=== PATIENT | male | born 1960 | race Caucasian/White ===

== ENCOUNTER 2018-05-14 17:44 | Inpatient (IN) | payer MEDICARE ==
[~2018-05-14] VITALS: Ht 180.3 cm; Wt 71.2 kg
[2018-05-14] MEDS ORDERED: ACETAMINOPHEN 325 MG TABLET PO PRN (18:00)
[2018-05-14 18:29] LABS: BASOPHILS # (AUTO) 0.02 x10^3/uL (0-0.1); BASOPHILS % (AUTO) 0 % (0-1); EOSINOPHILS # (AUTO) 0.11 x10^3/uL (0-0.4); EOSINOPHILS % (AUTO) 1 % (1-7); LYMPHOCYTES # (AUTO) 1.05 x10^3/uL (1-3.4); LYMPHOCYTES % (AUTO) 7 % (22-44); MD NO; MEAN CORPUSCULAR HEMOGLOBIN 24.1 pg (27.5-34.5); MEAN CORPUSCULAR HGB CONC 31.9 g/dL (33.2-36.2); MEAN CORPUSCULAR VOLUME 75.7 fL (81-97); MEAN PLATELET VOLUME 7.5 fL (7.4-10.4); MONOCYTES # (AUTO) 0.72 x10^3/uL (0.2-0.8); MONOCYTES % (AUTO) 5 % (2-9); NEUTROPHILS # (AUTO) 12.79 x10^3/uL (1.8-6.8); NEUTROPHILS % (AUTO) 87 % (42-75); PLATELET COUNT 381 x10^3/uL (130-400); RED BLOOD COUNT 4.11 x10^6/uL (4.38-5.82); RED CELL DISTRIBUTION WIDTH 17.8 % (9.4-14.8)
[2018-05-14] MEDS ORDERED: PLEASE ENTER HEIGHT AND WEIGHT MC SCH (18:30)
[2018-05-14] MEDS ORDERED: PLEASE ENTER ALLERGIES MC SCH (18:30)
[2018-05-14 18:39] LABS: INTERNATIONAL NORMALIZED RATIO 1.11 (0.93-1.1); PROTHROMBIN TIME 11.6 Seconds (9.6-11.5)
[2018-05-14 18:40] LABS: ANION GAP 6 mmol/L (5-15); CALCIUM 7.7 mg/dL (8.5-10.1); CHLORIDE 106 mmol/L (98-107); CREATININE 0.96 mg/dL (0.7-1.3)
[2018-05-14 20:04] VITALS: BP 121/68
[2018-05-14 20:13] VITALS: BP 104/64
[2018-05-14] MEDS: OXYcodone/APAP 5/325MG TABLET PO PRN (20:18)
[2018-05-14] MEDS: PIPERACILLIN/TAZO/PMX 3.375GM 50 ML IV SCH (20:30)
[2018-05-15 01:10] VITALS: BP 107/58
[2018-05-15] MEDS: PIPERACILLIN/TAZO/PMX 3.375GM 50 ML IV SCH ×3 (04:30→20:41)
[2018-05-15 05:43] LABS: ANION GAP 8 mmol/L (5-15); CALCIUM 7.7 mg/dL (8.5-10.1); CHLORIDE 107 mmol/L (98-107)
[2018-05-15 05:45] LABS: BASOPHILS # (AUTO) 0.04 x10^3/uL (0-0.1); BASOPHILS % (AUTO) 0 % (0-1); EOSINOPHILS # (AUTO) 0.27 x10^3/uL (0-0.4); EOSINOPHILS % (AUTO) 3 % (1-7); LYMPHOCYTES # (AUTO) 1.01 x10^3/uL (1-3.4); LYMPHOCYTES % (AUTO) 10 % (22-44); MD NO; MEAN CORPUSCULAR HEMOGLOBIN 23.8 pg (27.5-34.5); MEAN CORPUSCULAR HGB CONC 31.4 g/dL (33.2-36.2); MEAN CORPUSCULAR VOLUME 75.8 fL (81-97); MEAN PLATELET VOLUME 7.4 fL (7.4-10.4); MONOCYTES # (AUTO) 0.72 x10^3/uL (0.2-0.8); MONOCYTES % (AUTO) 7 % (2-9); NEUTROPHILS # (AUTO) 8.12 x10^3/uL (1.8-6.8); NEUTROPHILS % (AUTO) 80 % (42-75); PLATELET COUNT 353 x10^3/uL (130-400); RED BLOOD COUNT 3.74 x10^6/uL (4.38-5.82)
[2018-05-15 06:02] LABS: CREATININE 0.78 mg/dL (0.7-1.3)
[2018-05-15 07:41] VITALS: BP 117/67
[2018-05-15] MEDS ORDERED: POTASSIUM CHLORIDE 40 MEQ in SODIUM CHLORIDE 0.9% 500 ML IV ONE (10:00)
[2018-05-15] MEDS: OXYcodone/APAP 5/325MG TABLET PO PRN ×3 (11:10→20:11)
[2018-05-15 13:11] VITALS: BP 102/56
[2018-05-15 20:45] VITALS: BP 132/65
[2018-05-16 00:58] VITALS: BP 112/69
[2018-05-16] MEDS: PIPERACILLIN/TAZO/PMX 3.375GM 50 ML IV SCH ×3 (04:38→21:02)
[2018-05-16 05:02] LABS: BASOPHILS % (AUTO) 0 % (0-1); EOSINOPHILS # (AUTO) 0.21 x10^3/uL (0-0.4); EOSINOPHILS % (AUTO) 2 % (1-7); LYMPHOCYTES # (AUTO) 1.04 x10^3/uL (1-3.4); LYMPHOCYTES % (AUTO) 9 % (22-44); MD NO; MEAN CORPUSCULAR HEMOGLOBIN 24.2 pg (27.5-34.5); MEAN CORPUSCULAR VOLUME 75.7 fL (81-97); MEAN PLATELET VOLUME 7.3 fL (7.4-10.4); MONOCYTES # (AUTO) 0.89 x10^3/uL (0.2-0.8); MONOCYTES % (AUTO) 7 % (2-9); NEUTROPHILS # (AUTO) 9.96 x10^3/uL (1.8-6.8); NEUTROPHILS % (AUTO) 82 % (42-75); PLATELET COUNT 394 x10^3/uL (130-400); RED BLOOD COUNT 3.87 x10^6/uL (4.38-5.82); RED CELL DISTRIBUTION WIDTH 17.8 % (9.4-14.8)
[2018-05-16 05:11] LABS: ANION GAP 6 mmol/L (5-15); CALCIUM 7.9 mg/dL (8.5-10.1); CHLORIDE 106 mmol/L (98-107); CREATININE 0.72 mg/dL (0.7-1.3)
[2018-05-16] MEDS: OXYcodone/APAP 5/325MG TABLET PO PRN ×3 (05:30→19:53)
[2018-05-16 08:00] VITALS: BP 123/64
[2018-05-16 13:51] VITALS: BP 102/55
[2018-05-16] MEDS: ENOXAPARIN 40 MG/0.4 ML SQ SCH (15:46)
[2018-05-16 19:45] VITALS: BP 108/66
[2018-05-17 00:20] VITALS: BP 117/54
[2018-05-17] MEDS: OXYcodone/APAP 5/325MG TABLET PO PRN ×4 (04:56→22:07)
[2018-05-17] MEDS: PIPERACILLIN/TAZO/PMX 3.375GM 50 ML IV SCH ×3 (04:57→21:54)
[2018-05-17 07:26] VITALS: BP 119/53
[2018-05-17] MEDS ORDERED: PHARMACOKINETIC MONITORING MC PRN (10:30)
[2018-05-17] MEDS ORDERED: VANCOMYCIN PMX 1GM/200ML 200 ML IV ONE (10:30)
[2018-05-17] MEDS ORDERED: VANCOMYCIN PER PHARMACY MC PRN (10:30)
[2018-05-17] MEDS: VANCOMYCIN 1,300 MG in SODIUM CHLORIDE 0.9% 250 ML IV SCH ×2 (11:07→23:27)
[2018-05-17 12:47] LABS: MICROSCOPIC INDICATED
[2018-05-17 13:13] VITALS: BP 117/71
[2018-05-17] MEDS: ENOXAPARIN 40 MG/0.4 ML SQ SCH (14:58)
[2018-05-17 20:18] VITALS: BP 120/71
[2018-05-18] MEDS: OXYcodone/APAP 5/325MG TABLET PO PRN ×3 (02:07→22:00)
[2018-05-18 02:13] VITALS: BP 127/71
[2018-05-18] MEDS: PIPERACILLIN/TAZO/PMX 3.375GM 50 ML IV SCH ×4 (05:14→23:04)
[2018-05-18 06:47] LABS: BASOPHILS % (AUTO) 0 % (0-1); EOSINOPHILS # (AUTO) 0.35 x10^3/uL (0-0.4); EOSINOPHILS % (AUTO) 4 % (1-7); LYMPHOCYTES # (AUTO) 0.89 x10^3/uL (1-3.4); LYMPHOCYTES % (AUTO) 11 % (22-44); MD NO; MEAN CORPUSCULAR HEMOGLOBIN 23.8 pg (27.5-34.5); MEAN CORPUSCULAR HGB CONC 31.6 g/dL (33.2-36.2); MEAN CORPUSCULAR VOLUME 75.5 fL (81-97); MONOCYTES # (AUTO) 0.56 x10^3/uL (0.2-0.8); MONOCYTES % (AUTO) 7 % (2-9); NEUTROPHILS # (AUTO) 6.42 x10^3/uL (1.8-6.8); NEUTROPHILS % (AUTO) 78 % (42-75); PLATELET COUNT 469 x10^3/uL (130-400); RED BLOOD COUNT 4.42 x10^6/uL (4.38-5.82); RED CELL DISTRIBUTION WIDTH 18.3 % (9.4-14.8)
[2018-05-18 06:56] LABS: ANION GAP 4 mmol/L (5-15); CALCIUM 8.5 mg/dL (8.5-10.1); CHLORIDE 103 mmol/L (98-107); CREATININE 0.87 mg/dL (0.7-1.3)
[2018-05-18 07:41] VITALS: BP 126/84
[2018-05-18] MEDS: VANCOMYCIN 1,300 MG in SODIUM CHLORIDE 0.9% 250 ML IV SCH ×2 (11:00→12:00)
[2018-05-18] MEDS: LACTOBACILLUS CHEW TABLET PO SCH ×3 (11:48→19:39)
[2018-05-18 12:09] VITALS: BP 117/65
[2018-05-18] MEDS: MORPHINE SULFATE 4 MG/ML, 1ML IVPush PRN ×2 (14:40→19:39)
[2018-05-18] MEDS: ENOXAPARIN 40 MG/0.4 ML SQ SCH (15:11)
[2018-05-18] MEDS ORDERED: GADOBUTROL 7.5 MMOL/7.5 ML PFS ONE (18:55)
[2018-05-18 19:58] VITALS: BP 99/60
[2018-05-19 01:22] VITALS: BP 112/72
[2018-05-19] MEDS: VANCOMYCIN 1,300 MG in SODIUM CHLORIDE 0.9% 250 ML IV SCH (06:14)
[2018-05-19] MEDS: OXYcodone/APAP 5/325MG TABLET PO PRN ×4 (07:00→22:06)
[2018-05-19] MEDS: PIPERACILLIN/TAZO/PMX 3.375GM 50 ML IV SCH (07:47)
[2018-05-19] MEDS: LACTOBACILLUS CHEW TABLET PO SCH ×3 (07:48→19:37)
[2018-05-19 08:20] VITALS: BP 109/67
[2018-05-19] MEDS: MORPHINE SULFATE 4 MG/ML, 1ML IVPush PRN (08:45)
[2018-05-19] MEDS: ENOXAPARIN 40 MG/0.4 ML SQ SCH (15:29)
[2018-05-19] MEDS: CEFTAZIDIME 1,000 MG in SODIUM CHLORIDE 0.9% 50 ML IV SCH ×2 (15:29→23:19)
[2018-05-19 15:55] VITALS: BP 120/73
[2018-05-19 20:23] VITALS: BP 96/58
[2018-05-20] MEDS: VANCOMYCIN 1,300 MG in SODIUM CHLORIDE 0.9% 250 ML IV SCH ×2 (00:08→17:52)
[2018-05-20 02:06] VITALS: BP 105/64
[2018-05-20 07:22] VITALS: BP 110/71
[2018-05-20] MEDS: LACTOBACILLUS CHEW TABLET PO SCH ×3 (07:36→21:05)
[2018-05-20] MEDS: CEFTAZIDIME 1,000 MG in SODIUM CHLORIDE 0.9% 50 ML IV SCH ×3 (07:36→23:30)
[2018-05-20] MEDS: OXYcodone/APAP 5/325MG TABLET PO PRN ×3 (07:36→21:05)
[2018-05-20 14:32] VITALS: BP 96/59
[2018-05-20] MEDS: ENOXAPARIN 40 MG/0.4 ML SQ SCH (15:55)
[2018-05-20 18:49] VITALS: BP 101/64
[2018-05-20] MEDS: MORPHINE SULFATE 4 MG/ML, 1ML IVPush PRN (23:31)
[2018-05-21 01:02] VITALS: BP 105/63
[2018-05-21] MEDS: OXYcodone/APAP 5/325MG TABLET PO PRN ×4 (05:43→21:11)
[2018-05-21] MEDS: CEFTAZIDIME 1,000 MG in SODIUM CHLORIDE 0.9% 50 ML IV SCH ×2 (07:43→16:41)
[2018-05-21 07:56] VITALS: BP 124/74
[2018-05-21] MEDS: LACTOBACILLUS CHEW TABLET PO SCH ×3 (09:00→21:11)
[2018-05-21] MEDS: VANCOMYCIN 1,300 MG in SODIUM CHLORIDE 0.9% 250 ML IV SCH (11:54)
[2018-05-21] MEDS: MORPHINE SULFATE 4 MG/ML, 1ML IVPush PRN (11:54)
[2018-05-21 15:07] VITALS: BP 117/77
[2018-05-21] MEDS: ENOXAPARIN 40 MG/0.4 ML SQ SCH (16:40)
[2018-05-21 19:47] VITALS: BP 115/72
[2018-05-22 00:39] VITALS: BP 138/70
[2018-05-22] MEDS: OXYcodone/APAP 5/325MG TABLET PO PRN ×4 (00:52→20:25)
[2018-05-22] MEDS: CEFTAZIDIME 1,000 MG in SODIUM CHLORIDE 0.9% 50 ML IV SCH ×3 (00:52→15:51)
[2018-05-22] MEDS: GABAPENTIN 300 MG CAPSULE PO SCH ×2 (00:52→20:25)
[2018-05-22] MEDS: MORPHINE SULFATE 4 MG/ML, 1ML IVPush PRN ×2 (00:52→10:55)
[2018-05-22 06:01] LABS: CREATININE 0.93 mg/dL (0.7-1.3); VANCOMYCIN,TROUGH 17.1 mcg/mL (5.0-10.0)
[2018-05-22] MEDS: VANCOMYCIN 1,300 MG in SODIUM CHLORIDE 0.9% 250 ML IV SCH (06:06)
[2018-05-22 07:36] VITALS: BP 111/57
[2018-05-22] MEDS: LACTOBACILLUS CHEW TABLET PO SCH ×3 (08:30→20:25)
[2018-05-22 12:40] LABS: BASOPHILS # (AUTO) 0.04 x10^3/uL (0-0.1); BASOPHILS % (AUTO) 1 % (0-1); EOSINOPHILS # (AUTO) 0.42 x10^3/uL (0-0.4); EOSINOPHILS % (AUTO) 5 % (1-7); LYMPHOCYTES # (AUTO) 1.08 x10^3/uL (1-3.4); LYMPHOCYTES % (AUTO) 13 % (22-44); MD NO; MEAN CORPUSCULAR HEMOGLOBIN 23.2 pg (27.5-34.5); MEAN CORPUSCULAR HGB CONC 30.9 g/dL (33.2-36.2); MEAN CORPUSCULAR VOLUME 75.1 fL (81-97); MEAN PLATELET VOLUME 6.8 fL (7.4-10.4); MONOCYTES # (AUTO) 0.65 x10^3/uL (0.2-0.8); MONOCYTES % (AUTO) 8 % (2-9); NEUTROPHILS # (AUTO) 6.12 x10^3/uL (1.8-6.8); NEUTROPHILS % (AUTO) 74 % (42-75); PLATELET COUNT 560 x10^3/uL (130-400); RED BLOOD COUNT 4.38 x10^6/uL (4.38-5.82); RED CELL DISTRIBUTION WIDTH 18.6 % (9.4-14.8)
[2018-05-22 12:49] LABS: ANION GAP 7 mmol/L (5-15); CALCIUM 8.7 mg/dL (8.5-10.1); CHLORIDE 102 mmol/L (98-107); CREATININE 0.74 mg/dL (0.7-1.3)
[2018-05-22 14:01] VITALS: BP 143/76
[2018-05-22] MEDS: ENOXAPARIN 40 MG/0.4 ML SQ SCH (15:52)
[2018-05-22 20:27] VITALS: BP 97/62
[2018-05-23] MEDS: OXYcodone/APAP 5/325MG TABLET PO PRN ×4 (00:27→22:11)
[2018-05-23] MEDS: CEFTAZIDIME 1,000 MG in SODIUM CHLORIDE 0.9% 50 ML IV SCH ×3 (00:27→16:15)
[2018-05-23] MEDS: VANCOMYCIN 1,300 MG in SODIUM CHLORIDE 0.9% 250 ML IV SCH (01:24)
[2018-05-23 01:27] VITALS: BP 121/71
[2018-05-23 08:00] VITALS: BP 106/65
[2018-05-23] MEDS: LACTOBACILLUS CHEW TABLET PO SCH ×3 (09:19→20:20)
[2018-05-23] MEDS: GABAPENTIN 300 MG CAPSULE PO SCH (09:19)
[2018-05-23] MEDS: DAPTOMYCIN 450 MG in SODIUM CHLORIDE 0.9% 100 ML IVPB SCH (11:36)
[2018-05-23] MEDS: HEPARIN 5,000 UNITS/ML, 1ML SQ SCH ×2 (11:36→20:20)
[2018-05-23] MEDS: MORPHINE SULFATE 4 MG/ML, 1ML IVPush PRN (13:46)
[2018-05-23 13:51] VITALS: BP 121/67
[2018-05-23 19:15] VITALS: BP 114/70
[2018-05-24] MEDS: CEFTAZIDIME 1,000 MG in SODIUM CHLORIDE 0.9% 50 ML IV SCH ×3 (00:20→16:13)
[2018-05-24] MEDS: OXYcodone/APAP 5/325MG TABLET PO PRN ×4 (02:05→20:22)
[2018-05-24 02:08] VITALS: BP 116/76
[2018-05-24] MEDS: HEPARIN 5,000 UNITS/ML, 1ML SQ SCH ×3 (04:41→20:22)
[2018-05-24 07:45] VITALS: BP 121/75
[2018-05-24] MEDS: LACTOBACILLUS CHEW TABLET PO SCH ×3 (08:24→20:22)
[2018-05-24] MEDS: GABAPENTIN 300 MG CAPSULE PO SCH (08:24)
[2018-05-24] MEDS: MORPHINE SULFATE 4 MG/ML, 1ML IVPush PRN (08:54)
[2018-05-24] MEDS: DAPTOMYCIN 450 MG in SODIUM CHLORIDE 0.9% 100 ML IVPB SCH (12:01)
[2018-05-24 12:15] VITALS: BP 117/75
[2018-05-24 18:54] VITALS: BP 121/73
[2018-05-25] MEDS: CEFTAZIDIME 1,000 MG in SODIUM CHLORIDE 0.9% 50 ML IV SCH ×3 (00:31→15:58)
[2018-05-25] MEDS: OXYcodone/APAP 5/325MG TABLET PO PRN ×4 (00:31→19:45)
[2018-05-25 00:32] VITALS: BP 133/68
[2018-05-25] MEDS: HEPARIN 5,000 UNITS/ML, 1ML SQ SCH ×3 (04:00→19:46)
[2018-05-25 05:44] LABS: BASOPHILS # (AUTO) 0.07 x10^3/uL (0-0.1); BASOPHILS % (AUTO) 1 % (0-1); EOSINOPHILS # (AUTO) 0.52 x10^3/uL (0-0.4); EOSINOPHILS % (AUTO) 7 % (1-7); LYMPHOCYTES # (AUTO) 1.17 x10^3/uL (1-3.4); LYMPHOCYTES % (AUTO) 16 % (22-44); MD NO; MEAN CORPUSCULAR HEMOGLOBIN 23.7 pg (27.5-34.5); MEAN CORPUSCULAR HGB CONC 31.6 g/dL (33.2-36.2); MEAN CORPUSCULAR VOLUME 75.2 fL (81-97); MEAN PLATELET VOLUME 7.2 fL (7.4-10.4); MONOCYTES # (AUTO) 0.76 x10^3/uL (0.2-0.8); MONOCYTES % (AUTO) 10 % (2-9); NEUTROPHILS # (AUTO) 4.93 x10^3/uL (1.8-6.8); NEUTROPHILS % (AUTO) 66 % (42-75); PLATELET COUNT 535 x10^3/uL (130-400); RED BLOOD COUNT 4.24 x10^6/uL (4.38-5.82); RED CELL DISTRIBUTION WIDTH 18.9 % (9.4-14.8)
[2018-05-25 05:52] LABS: ALANINE AMINOTRANSFERASE 38 U/L (12-78); ALBUMIN 2.6 g/dL (3.4-5.0); ANION GAP 5 mmol/L (5-15); CALCIUM 8.6 mg/dL (8.5-10.1); CHLORIDE 105 mmol/L (98-107)
[2018-05-25 05:55] LABS: ALKALINE PHOSPHATASE 128 U/L (45-117); BILIRUBIN,TOTAL 0.2 mg/dL (0.2-1.0); CREATININE 0.79 mg/dL (0.7-1.3); TOTAL PROTEIN 7.4 g/dL (6.4-8.2)
[2018-05-25 06:56] VITALS: BP 135/81
[2018-05-25] MEDS: LACTOBACILLUS CHEW TABLET PO SCH ×3 (08:38→19:45)
[2018-05-25] MEDS: GABAPENTIN 300 MG CAPSULE PO SCH (08:38)
[2018-05-25] MEDS: DAPTOMYCIN 450 MG in SODIUM CHLORIDE 0.9% 100 ML IVPB SCH (10:51)
[2018-05-25 13:34] VITALS: BP 122/78
[2018-05-25 19:20] VITALS: BP 113/72
[2018-05-25 23:50] VITALS: BP 134/78
[2018-05-26] MEDS: OXYcodone/APAP 5/325MG TABLET PO PRN ×5 (00:32→22:36)
[2018-05-26] MEDS: CEFTAZIDIME 1,000 MG in SODIUM CHLORIDE 0.9% 50 ML IV SCH ×2 (00:32→08:57)
[2018-05-26] MEDS: HEPARIN 5,000 UNITS/ML, 1ML SQ SCH ×3 (04:36→22:36)
[2018-05-26 06:29] LABS: HCT (SEDRATE) 33.3 % (39.2-51.8)
[2018-05-26 06:46] LABS: C-REACTIVE PROTEIN, QUANT 1.1 mg/dL (0.02-0.49)
[2018-05-26 07:38] VITALS: BP 116/74
[2018-05-26] MEDS: GABAPENTIN 300 MG CAPSULE PO SCH (08:57)
[2018-05-26] MEDS: LACTOBACILLUS CHEW TABLET PO SCH ×3 (08:57→22:36)
[2018-05-26] MEDS: MORPHINE SULFATE 4 MG/ML, 1ML IVPush PRN (09:06)
[2018-05-26] MEDS: DAPTOMYCIN 450 MG in SODIUM CHLORIDE 0.9% 100 ML IVPB SCH (11:34)
[2018-05-26 13:25] VITALS: BP 112/69
[2018-05-26] MEDS: CEFTAZIDIME 2,000 MG in SODIUM CHLORIDE 0.9% 50 ML IV SCH (17:04)
[2018-05-26 20:04] VITALS: BP 106/56
[2018-05-27] MEDS: CEFTAZIDIME 2,000 MG in SODIUM CHLORIDE 0.9% 50 ML IV SCH ×3 (01:33→17:48)
[2018-05-27] MEDS: MORPHINE SULFATE 4 MG/ML, 1ML IVPush PRN ×2 (01:43→22:13)
[2018-05-27 02:53] VITALS: BP 113/67
[2018-05-27] MEDS: HEPARIN 5,000 UNITS/ML, 1ML SQ SCH ×2 (06:05→17:48)
[2018-05-27] MEDS: OXYcodone/APAP 5/325MG TABLET PO PRN ×2 (06:05→14:56)
[2018-05-27] MEDS: LACTOBACILLUS CHEW TABLET PO SCH ×3 (09:20→22:13)
[2018-05-27] MEDS: GABAPENTIN 300 MG CAPSULE PO SCH (09:20)
[2018-05-27 09:31] VITALS: BP 116/76
[2018-05-27] MEDS: DAPTOMYCIN 450 MG in SODIUM CHLORIDE 0.9% 100 ML IVPB SCH (11:55)
[2018-05-27 14:52] VITALS: BP 124/76
[2018-05-27 20:21] VITALS: BP 136/82
[2018-05-28 00:54] VITALS: BP 117/70
[2018-05-28] MEDS: CEFTAZIDIME 2,000 MG in SODIUM CHLORIDE 0.9% 50 ML IV SCH ×2 (02:03→08:47)
[2018-05-28] MEDS: HEPARIN 5,000 UNITS/ML, 1ML SQ SCH ×2 (02:03→10:06)
[2018-05-28] MEDS: OXYcodone/APAP 5/325MG TABLET PO PRN ×3 (02:17→15:56)
[2018-05-28] MEDS: GABAPENTIN 300 MG CAPSULE PO SCH (08:47)
[2018-05-28] MEDS: LACTOBACILLUS CHEW TABLET PO SCH (08:47)
[2018-05-28 09:12] VITALS: BP 109/57
[2018-05-28] MEDS: MORPHINE SULFATE 4 MG/ML, 1ML IVPush PRN ×2 (09:55→15:56)
[2018-05-28] MEDS ORDERED: ACID1TAB7 PO (11:48)
[2018-05-28] MEDS ORDERED: OXYC1TAB7 PO (11:48)
[2018-05-28] MEDS ORDERED: GABA300C10 PO (11:48)
[2018-05-28] MEDS: DAPTOMYCIN 450 MG in SODIUM CHLORIDE 0.9% 100 ML IVPB SCH (12:06)
[2018-05-28 14:51] VITALS: BP 142/76
== END 2018-05-28 16:10 | DRG 871 ==
LOC: 4NOR 17:44
PROVIDERS: ADMIT Internal Medicine; ATTEND Internal Medicine
PROC: 02HV33Z Insertion of Infusion Device into Superior Vena Cava, Percutaneous Approach (ICD-10-PCS; principal; 2018-05-26)
PROC: B5181ZA Fluoroscopy of Superior Vena Cava using Low Osmolar Contrast, Guidance (ICD-10-PCS; 2018-05-26)
PROC: B548ZZA Ultrasonography of Superior Vena Cava, Guidance (ICD-10-PCS; 2018-05-26)
DX: A41.9 Sepsis, unspecified organism (principal); R53.2 Functional quadriplegia; N39.0 Urinary tract infection, site not specified; G82.20 Paraplegia, unspecified; L03.115 Cellulitis of right lower limb; M86.18 Other acute osteomyelitis, other site; M86.68 Other chronic osteomyelitis, other site; L02.415 Cutaneous abscess of right lower limb; B96.4 Proteus (mirabilis) (morganii) as the cause of diseases classified elsewhere; L89.229 Pressure ulcer of left hip, unspecified stage; L98.419 Non-pressure chronic ulcer of buttock with unspecified severity; Z79.2 Long term (current) use of antibiotics; Z87.440 Personal history of urinary (tract) infections; Z87.81 Personal history of (healed) traumatic fracture; B95.62 Methicillin resistant Staphylococcus aureus infection as the cause of diseases classified elsewhere; B96.5 Pseudomonas (aeruginosa) (mallei) (pseudomallei) as the cause of diseases classified elsewhere
CPT/HCPCS: 36415; 36573; 80048; 80053; 80202; 81001; 82550; 82565; 83735; 84100; 84145; 85025; 85610; 85651; 86140; 87040; 87070; 87077; 87086; 87106; 87186; 87205; A9585; G0378; J0713; J0878; J1644; J1650; J2543; J3370; J3480; C1751; J2270; J7040; J7050

== ENCOUNTER 2018-08-28 00:41 | Inpatient (IN) | payer MEDICARE, OTHER, MEDICAID ==
[~2018-08-28] VITALS: Ht 180.3 cm; Wt 73.2 kg
[~2018-08-28 00:41] MED LIST: ACID1TAB7 PO; GABA300C10 PO; OXYC1TAB7 PO
[2018-08-28 01:23] LABS: HCT (SEDRATE) 31.7 % (39.2-51.8)
[2018-08-28] MEDS ORDERED: HYDROcodone/APAP 10/325 MG TABLET PO ONE (02:00)
[2018-08-28] MEDS ORDERED: HYDROcodone/APAP 10/325 MG TABLET ONE (02:21)
[2018-08-28] MEDS ORDERED: OMNIPAQUE 350 MG/ML, 100ML BOTTLE ONE (02:38)
--- NOTE | 2018-08-28 03:00 | NUR ---
PT MEDICATED FOR PAIN. NO STATED NEEDS AT THIS TIME. WILL CONTINUE TO MONITOR. PT RESTING ON AND OFF.
--- NOTE | 2018-08-28 03:53 | NUR ---
Roselyn mullins in [facility] - 08/28/18 at 0354 by [email or web address] report to chula alcantar
--- NOTE | 2018-08-28 03:54 | NUR ---
REPORT TO AMEENA RUIZ
--- NOTE | 2018-08-28 03:57 | NUR ---
PT ROSAS CATH REPLACED AT [facility] LAST NIGHT.
--- NOTE | 2018-08-28 03:57 | NUR ---
Roselyn mullins in [facility] - 08/28/18 at 0357 by [email or web address] PT RALPH COBURN REPLACED AT [facility] LAST NIGHT.
[2018-08-28 04:30] VITALS: BP 155/93
[2018-08-28] MEDS ORDERED: VANCOMYCIN PER PHARMACY MC PRN (04:30)
[2018-08-28] MEDS ORDERED: ZOSYN PER PHARMACY MC PRN (04:30)
[2018-08-28] MEDS ORDERED: PHARMACOKINETIC MONITORING MC PRN (05:00)
[2018-08-28] MEDS ORDERED: PHARMACOKINETIC CONSULTATION MC ONE (05:00)
[2018-08-28] MEDS: VANCOMYCIN 1,300 MG in SODIUM CHLORIDE 0.9% 250 ML IV SCH ×2 (05:43→17:19)
[2018-08-28 05:56] LABS: CREATININE 0.78 mg/dL (0.7-1.3)
[2018-08-28] MEDS: PIPERACILLIN/TAZO/PMX 4.5GM 100 ML IV SCH ×3 (08:16→20:33)
[2018-08-28 09:39] VITALS: BP 150/72
[2018-08-28 14:26] VITALS: BP 152/76
[2018-08-28] MEDS: OXYcodone 5 MG/5 ML ORAL.SOL UDC PO PRN (17:44)
[2018-08-28 20:38] VITALS: BP 148/89
[2018-08-28] MEDS ORDERED: GABA300C10 PO (23:14)
[2018-08-28] MEDS: LORazepam 0.5MG TABLET PO PRN (23:52)
[2018-08-29] MEDS: OXYcodone 5 MG/5 ML ORAL.SOL UDC PO PRN ×3 (01:14→19:32)
[2018-08-29 02:22] VITALS: BP 116/72
[2018-08-29] MEDS: PIPERACILLIN/TAZO/PMX 4.5GM 100 ML IV SCH ×4 (02:57→22:02)
[2018-08-29] MEDS: VANCOMYCIN 1,300 MG in SODIUM CHLORIDE 0.9% 250 ML IV SCH ×2 (05:06→17:00)
[2018-08-29 05:59] LABS: BASOPHILS % (AUTO) 0 % (0-1); EOSINOPHILS # (AUTO) 0.16 x10^3/uL (0-0.4); EOSINOPHILS % (AUTO) 3 % (1-7); LYMPHOCYTES # (AUTO) 0.66 x10^3/uL (1-3.4); LYMPHOCYTES % (AUTO) 11 % (22-44); MD NO; MEAN CORPUSCULAR HEMOGLOBIN 21.3 pg (27.5-34.5); MEAN CORPUSCULAR HGB CONC 30.4 g/dL (33.2-36.2); MEAN CORPUSCULAR VOLUME 70.1 fL (81-97); MEAN PLATELET VOLUME 7.8 fL (7.4-10.4); MONOCYTES # (AUTO) 0.31 x10^3/uL (0.2-0.8); MONOCYTES % (AUTO) 5 % (2-9); NEUTROPHILS # (AUTO) 4.79 x10^3/uL (1.8-6.8); NEUTROPHILS % (AUTO) 81 % (42-75); PLATELET COUNT 359 x10^3/uL (130-400); RED BLOOD COUNT 4.37 x10^6/uL (4.38-5.82)
[2018-08-29 06:17] LABS: CHLORIDE 102 mmol/L (98-107)
[2018-08-29 06:35] LABS: ALANINE AMINOTRANSFERASE 18 U/L (12-78); ALBUMIN 2.1 g/dL (3.4-5.0); ALKALINE PHOSPHATASE 113 U/L (45-117); ANION GAP 9 mmol/L (5-15); BILIRUBIN,TOTAL 0.6 mg/dL (0.2-1.0); CALCIUM 8.4 mg/dL (8.5-10.1); CREATININE 0.79 mg/dL (0.7-1.3); TOTAL PROTEIN 6.9 g/dL (6.4-8.2)
[2018-08-29 07:29] VITALS: BP 134/64
[2018-08-29] MEDS: GABAPENTIN 300 MG CAPSULE PO SCH ×2 (09:42→22:02)
[2018-08-29 11:12] LABS: % IRON SATURATION 7 % (20-55); IRON LEVEL 15 mcg/dL (65-175); TOTAL IRON BINDING CAPACITY 212 mcg/dL (250-450)
[2018-08-29] MEDS: FERROUS SULFATE 325 MG TABLET PO SCH ×2 (13:24→17:25)
[2018-08-29 14:21] VITALS: BP 146/87
[2018-08-29] MEDS: LORazepam 0.5MG TABLET PO PRN (14:33)
[2018-08-29 19:34] VITALS: BP 118/69
[2018-08-30] MEDS: PIPERACILLIN/TAZO/PMX 4.5GM 100 ML IV SCH ×4 (03:52→23:59)
[2018-08-30 03:58] VITALS: BP 145/80
[2018-08-30 06:07] LABS: ALANINE AMINOTRANSFERASE 18 U/L (12-78); ALBUMIN 2.2 g/dL (3.4-5.0); ANION GAP 10 mmol/L (5-15); CALCIUM 8.4 mg/dL (8.5-10.1); CHLORIDE 100 mmol/L (98-107); CREATININE 0.88 mg/dL (0.7-1.3)
[2018-08-30 06:09] LABS: MEAN CORPUSCULAR HEMOGLOBIN 21.2 pg (27.5-34.5); MEAN CORPUSCULAR HGB CONC 30.3 g/dL (33.2-36.2); MEAN CORPUSCULAR VOLUME 70.1 fL (81-97); MEAN PLATELET VOLUME 7.8 fL (7.4-10.4); PLATELET COUNT 392 x10^3/uL (130-400); RED BLOOD COUNT 4.67 x10^6/uL (4.38-5.82)
[2018-08-30 06:10] LABS: ALKALINE PHOSPHATASE 116 U/L (45-117); BILIRUBIN,TOTAL 0.5 mg/dL (0.2-1.0); TOTAL PROTEIN 7.4 g/dL (6.4-8.2)
[2018-08-30 06:38] LABS: BASOPHILS % (AUTO) 0 % (0-1); EOSINOPHILS # (AUTO) 0.24 x10^3/uL (0-0.4); EOSINOPHILS % (AUTO) 4 % (1-7); LYMPHOCYTES # (AUTO) 1.12 x10^3/uL (1-3.4); LYMPHOCYTES % (AUTO) 19 % (22-44); MD MORPH REVIEW ONLY; MONOCYTES # (AUTO) 0.34 x10^3/uL (0.2-0.8); MONOCYTES % (AUTO) 6 % (2-9); NEUTROPHILS # (AUTO) 4.32 x10^3/uL (1.8-6.8); NEUTROPHILS % (AUTO) 72 % (42-75)
[2018-08-30 06:39] LABS: HYPOCHROMIA 1+; MICROCYTOSIS 1+
[2018-08-30 06:40] LABS: <PLATELET ESTIMATE> ADEQUATE; <PLT MORPHOLOGY> NORMAL PLT MORPH; ANISOCYTOSIS 1+; OVALOCYTES 1+
[2018-08-30] MEDS: OXYcodone 5 MG/5 ML ORAL.SOL UDC PO PRN ×2 (06:49→18:13)
[2018-08-30 08:53] VITALS: BP 148/88
[2018-08-30] MEDS: FERROUS SULFATE 325 MG TABLET PO SCH ×3 (08:53→18:13)
[2018-08-30] MEDS: GABAPENTIN 300 MG CAPSULE PO SCH ×2 (08:53→21:22)
[2018-08-30] MEDS: LORazepam 0.5MG TABLET PO PRN ×2 (09:32→21:30)
[2018-08-30] MEDS: VANCOMYCIN 1,300 MG in SODIUM CHLORIDE 0.9% 250 ML IV SCH (09:32)
[2018-08-30 14:00] VITALS: BP 125/79
[2018-08-30 20:10] VITALS: BP 136/89
[2018-08-31 02:03] VITALS: BP 101/70
[2018-08-31] MEDS: OXYcodone 5 MG/5 ML ORAL.SOL UDC PO PRN ×3 (02:24→20:21)
[2018-08-31 05:47] LABS: ALBUMIN 2.6 g/dL (3.4-5.0); ANION GAP 9 mmol/L (5-15); CALCIUM 8.7 mg/dL (8.5-10.1); CHLORIDE 102 mmol/L (98-107)
[2018-08-31 05:49] LABS: MEAN CORPUSCULAR HEMOGLOBIN 21.8 pg (27.5-34.5); MEAN CORPUSCULAR HGB CONC 30.7 g/dL (33.2-36.2); MEAN CORPUSCULAR VOLUME 70.9 fL (81-97); MEAN PLATELET VOLUME 7.8 fL (7.4-10.4); PLATELET COUNT 460 x10^3/uL (130-400); RED BLOOD COUNT 5.15 x10^6/uL (4.38-5.82); RED CELL DISTRIBUTION WIDTH 21.4 % (9.4-14.8)
[2018-08-31 05:52] LABS: ALANINE AMINOTRANSFERASE 16 U/L (12-78); ALKALINE PHOSPHATASE 123 U/L (45-117); BILIRUBIN,TOTAL 0.2 mg/dL (0.2-1.0); CREATININE 1.07 mg/dL (0.7-1.3); TOTAL PROTEIN 8.3 g/dL (6.4-8.2)
[2018-08-31] MEDS: PIPERACILLIN/TAZO/PMX 4.5GM 100 ML IV SCH ×3 (06:00→17:56)
[2018-08-31 06:20] LABS: BASOPHILS % (AUTO) 0 % (0-1); EOSINOPHILS % (AUTO) 3 % (1-7); LYMPHOCYTES # (AUTO) 1.15 x10^3/uL (1-3.4); LYMPHOCYTES % (AUTO) 14 % (22-44); MD SCAN; MONOCYTES # (AUTO) 0.68 x10^3/uL (0.2-0.8); MONOCYTES % (AUTO) 8 % (2-9); NEUTROPHILS # (AUTO) 6.07 x10^3/uL (1.8-6.8); NEUTROPHILS % (AUTO) 75 % (42-75)
[2018-08-31 08:41] VITALS: BP 112/77
[2018-08-31] MEDS: FERROUS SULFATE 325 MG TABLET PO SCH ×3 (08:54→17:56)
[2018-08-31] MEDS: LORazepam 0.5MG TABLET PO PRN (08:54)
[2018-08-31] MEDS: GABAPENTIN 300 MG CAPSULE PO SCH ×2 (08:56→20:21)
[2018-08-31] MEDS: VANCOMYCIN 1,300 MG in SODIUM CHLORIDE 0.9% 250 ML IV SCH (08:56)
[2018-08-31 14:30] VITALS: BP 127/87
[2018-08-31 19:06] VITALS: BP 121/74
[2018-09-01] MEDS: PIPERACILLIN/TAZO/PMX 4.5GM 100 ML IV SCH ×4 (01:13→18:07)
[2018-09-01 01:20] VITALS: BP 117/70
[2018-09-01] MEDS: LORazepam 0.5MG TABLET PO PRN ×2 (01:20→18:35)
[2018-09-01 04:51] LABS: MEAN CORPUSCULAR HEMOGLOBIN 21.9 pg (27.5-34.5); MEAN CORPUSCULAR HGB CONC 30.7 g/dL (33.2-36.2); MEAN CORPUSCULAR VOLUME 71.4 fL (81-97); MEAN PLATELET VOLUME 7.6 fL (7.4-10.4); PLATELET COUNT 476 x10^3/uL (130-400); RED BLOOD COUNT 4.99 x10^6/uL (4.38-5.82); RED CELL DISTRIBUTION WIDTH 21.1 % (9.4-14.8)
[2018-09-01 04:57] LABS: ALBUMIN 2.5 g/dL (3.4-5.0); ANION GAP 8 mmol/L (5-15); CHLORIDE 100 mmol/L (98-107)
[2018-09-01 05:00] LABS: ALANINE AMINOTRANSFERASE 16 U/L (12-78); ALKALINE PHOSPHATASE 122 U/L (45-117); BILIRUBIN,TOTAL 0.4 mg/dL (0.2-1.0); CREATININE 1.06 mg/dL (0.7-1.3); TOTAL PROTEIN 8.3 g/dL (6.4-8.2)
[2018-09-01 05:53] LABS: MD YES
[2018-09-01 05:58] LABS: ANISOCYTOSIS 1+; BASOS#(MANUAL) 0.07 x10^3/uL (0-0.1); BASOS% (MANUAL) 1 % (0-1); EOS% (MANUAL) 4 % (1-7); HYPOCHROMIA 1+; LYMPH#(MANUAL) 1.48 x10^3/uL (1-3.4); LYMPHS% (MANUAL) 20 % (22-44); MICROCYTOSIS 1+; MONOS#(MANUAL) 0.67 x10^3/uL (0.3-2.7); MONOS% (MANUAL) 9 % (2-9); SEG#(MANUAL) 4.88 x10^3/uL (1.8-6.8); SEGS% (MANUAL) 66 % (42-75)
[2018-09-01 05:59] LABS: <PLATELET ESTIMATE> INCREASED; <PLT MORPHOLOGY> NORMAL PLT MORPH; OVALOCYTES 1+
[2018-09-01] MEDS: OXYcodone 5 MG/5 ML ORAL.SOL UDC PO PRN ×2 (06:06→15:53)
[2018-09-01 08:03] VITALS: BP 113/77
[2018-09-01] MEDS: FERROUS SULFATE 325 MG TABLET PO SCH ×3 (08:52→18:07)
[2018-09-01] MEDS: GABAPENTIN 300 MG CAPSULE PO SCH ×2 (08:52→22:16)
[2018-09-01] MEDS: VANCOMYCIN 1,300 MG in SODIUM CHLORIDE 0.9% 250 ML IV SCH (08:52)
[2018-09-01 12:29] VITALS: BP 111/65
[2018-09-01] MEDS ORDERED: ENOXAPARIN 40 MG/0.4 ML SQ SCH (12:30)
[2018-09-01 19:38] VITALS: BP 111/67
[2018-09-02] MEDS: PIPERACILLIN/TAZO/PMX 4.5GM 100 ML IV SCH ×4 (00:33→18:22)
[2018-09-02] MEDS: OXYcodone 5 MG/5 ML ORAL.SOL UDC PO PRN ×3 (00:41→18:22)
[2018-09-02 02:51] VITALS: BP 106/65
[2018-09-02 06:11] LABS: ALANINE AMINOTRANSFERASE 16 U/L (12-78); ALBUMIN 2.7 g/dL (3.4-5.0); ANION GAP 6 mmol/L (5-15); CALCIUM 9.3 mg/dL (8.5-10.1); CHLORIDE 100 mmol/L (98-107)
[2018-09-02 06:14] LABS: ALKALINE PHOSPHATASE 117 U/L (45-117); BILIRUBIN,TOTAL 0.7 mg/dL (0.2-1.0); CREATININE 1.14 mg/dL (0.7-1.3); TOTAL PROTEIN 8.8 g/dL (6.4-8.2)
[2018-09-02 06:16] LABS: MEAN CORPUSCULAR HEMOGLOBIN 21.7 pg (27.5-34.5); MEAN CORPUSCULAR VOLUME 69.9 fL (81-97); MEAN PLATELET VOLUME 7.5 fL (7.4-10.4); PLATELET COUNT 494 x10^3/uL (130-400); RED BLOOD COUNT 5.27 x10^6/uL (4.38-5.82); RED CELL DISTRIBUTION WIDTH 21.6 % (9.4-14.8)
[2018-09-02 06:48] LABS: MD YES
[2018-09-02 06:50] LABS: EOS#(MANUAL) 0.13 x10^3/uL (0.0-0.4); EOS% (MANUAL) 2 % (1-7); LYMPH#(MANUAL) 1.37 x10^3/uL (1-3.4); LYMPHS% (MANUAL) 21 % (22-44); MONOS#(MANUAL) 0.52 x10^3/uL (0.3-2.7); MONOS% (MANUAL) 8 % (2-9); SEG#(MANUAL) 4.49 x10^3/uL (1.8-6.8); SEGS% (MANUAL) 69 % (42-75)
[2018-09-02 06:51] LABS: <PLATELET ESTIMATE> INCREASED; <PLT MORPHOLOGY> NORMAL PLT MORPH; ANISOCYTOSIS 1+; HYPOCHROMIA 1+; MICROCYTOSIS 1+; OVALOCYTES 1+
[2018-09-02 07:42] VITALS: BP 121/75
[2018-09-02] MEDS: HEPARIN 5,000 UNITS/ML, 1ML SQ SCH ×2 (08:30→18:23)
[2018-09-02] MEDS: VANCOMYCIN 1,300 MG in SODIUM CHLORIDE 0.9% 250 ML IV SCH (08:50)
[2018-09-02] MEDS: FERROUS SULFATE 325 MG TABLET PO SCH ×3 (08:50→18:23)
[2018-09-02] MEDS: GABAPENTIN 300 MG CAPSULE PO SCH ×2 (08:50→21:03)
[2018-09-02] MEDS: LORazepam 0.5MG TABLET PO PRN ×2 (09:09→21:03)
[2018-09-02 10:01] LABS: INTERNATIONAL NORMALIZED RATIO 0.97 (0.93-1.1); PROTHROMBIN TIME 10.2 Seconds (9.6-11.5)
[2018-09-02] MEDS ORDERED: OMNIPAQUE 350 MG/ML, 75ML BOTTLE ONE (12:05)
[2018-09-02 15:36] VITALS: BP 119/74
[2018-09-02 19:21] VITALS: BP 130/76
[2018-09-03] MEDS: PIPERACILLIN/TAZO/PMX 4.5GM 100 ML IV SCH ×4 (00:12→17:46)
[2018-09-03] MEDS: HEPARIN 5,000 UNITS/ML, 1ML SQ SCH ×3 (00:13→17:02)
[2018-09-03 00:23] VITALS: BP 148/84
[2018-09-03] MEDS: OXYcodone 5 MG/5 ML ORAL.SOL UDC PO PRN ×3 (02:13→19:58)
[2018-09-03 05:33] LABS: MEAN CORPUSCULAR HEMOGLOBIN 21.9 pg (27.5-34.5); MEAN CORPUSCULAR HGB CONC 30.9 g/dL (33.2-36.2); MEAN CORPUSCULAR VOLUME 70.7 fL (81-97); MEAN PLATELET VOLUME 7.2 fL (7.4-10.4); PLATELET COUNT 547 x10^3/uL (130-400); RED BLOOD COUNT 4.93 x10^6/uL (4.38-5.82); RED CELL DISTRIBUTION WIDTH 21.8 % (9.4-14.8)
[2018-09-03 05:41] LABS: ALBUMIN 2.7 g/dL (3.4-5.0); ANION GAP 6 mmol/L (5-15); CHLORIDE 100 mmol/L (98-107)
[2018-09-03 05:45] LABS: ALANINE AMINOTRANSFERASE 17 U/L (12-78); ALKALINE PHOSPHATASE 116 U/L (45-117); BILIRUBIN,TOTAL 0.3 mg/dL (0.2-1.0); CREATININE 1.11 mg/dL (0.7-1.3); TOTAL PROTEIN 8.5 g/dL (6.4-8.2)
[2018-09-03 06:04] LABS: MD YES
[2018-09-03 06:06] LABS: BAND#(MANUAL) 0.08 x10^3/uL; BANDS%(MANUAL) 1 % (0-7); EOS#(MANUAL) 0.25 x10^3/uL (0.0-0.4); EOS% (MANUAL) 3 % (1-7); LYMPH#(MANUAL) 1.49 x10^3/uL (1-3.4); LYMPHS% (MANUAL) 18 % (22-44); MONOS#(MANUAL) 0.66 x10^3/uL (0.3-2.7); MONOS% (MANUAL) 8 % (2-9); SEG#(MANUAL) 5.81 x10^3/uL (1.8-6.8); SEGS% (MANUAL) 70 % (42-75)
[2018-09-03 06:07] LABS: <PLATELET ESTIMATE> INCREASED; <PLT MORPHOLOGY> NORMAL PLT MORPH; ANISOCYTOSIS 1+; HYPOCHROMIA 1+; MICROCYTOSIS 1+; OVALOCYTES 1+
[2018-09-03 07:58] VITALS: BP 115/85
[2018-09-03] MEDS: FERROUS SULFATE 325 MG TABLET PO SCH ×3 (08:18→17:02)
[2018-09-03] MEDS: GABAPENTIN 300 MG CAPSULE PO SCH ×2 (08:18→19:58)
[2018-09-03] MEDS: LORazepam 0.5MG TABLET PO PRN (10:44)
[2018-09-03 12:44] VITALS: BP 122/72
[2018-09-03] MEDS: VANCOMYCIN 1,300 MG in SODIUM CHLORIDE 0.9% 250 ML IV SCH (12:56)
[2018-09-03 19:09] VITALS: BP 124/72
[2018-09-04 00:17] VITALS: BP 131/76
[2018-09-04] MEDS: PIPERACILLIN/TAZO/PMX 4.5GM 100 ML IV SCH ×4 (00:45→17:47)
[2018-09-04] MEDS: HEPARIN 5,000 UNITS/ML, 1ML SQ SCH ×3 (00:45→16:35)
[2018-09-04] MEDS: LORazepam 0.5MG TABLET PO PRN ×2 (00:45→16:48)
[2018-09-04] MEDS: OXYcodone 5 MG/5 ML ORAL.SOL UDC PO PRN ×2 (06:13→16:48)
[2018-09-04] MEDS: FERROUS SULFATE 325 MG TABLET PO SCH ×3 (08:37→16:35)
[2018-09-04] MEDS: GABAPENTIN 300 MG CAPSULE PO SCH ×2 (08:37→20:30)
[2018-09-04 08:42] VITALS: BP 93/63
[2018-09-04] MEDS: DAPTOMYCIN 500 MG in SODIUM CHLORIDE 0.9% 100 ML IVPB SCH (16:49)
[2018-09-04 20:00] VITALS: BP 131/76
[2018-09-05] MEDS: PIPERACILLIN/TAZO/PMX 4.5GM 100 ML IV SCH ×4 (00:09→18:17)
[2018-09-05] MEDS: OXYcodone 5 MG/5 ML ORAL.SOL UDC PO PRN ×2 (00:48→09:31)
[2018-09-05] MEDS: LORazepam 0.5MG TABLET PO PRN ×3 (00:48→21:34)
[2018-09-05] MEDS: HEPARIN 5,000 UNITS/ML, 1ML SQ SCH ×3 (00:48→16:51)
[2018-09-05 01:28] VITALS: BP 108/66
[2018-09-05 07:28] VITALS: BP 137/77
[2018-09-05] MEDS: GABAPENTIN 300 MG CAPSULE PO SCH ×2 (08:14→20:07)
[2018-09-05] MEDS: FERROUS SULFATE 325 MG TABLET PO SCH ×3 (08:14→16:51)
[2018-09-05] MEDS: OXYcodone IR 5MG TABLET PO PRN ×3 (14:24→22:35)
[2018-09-05 14:40] VITALS: BP 116/72
[2018-09-05] MEDS: DAPTOMYCIN 500 MG in SODIUM CHLORIDE 0.9% 100 ML IVPB SCH (16:51)
[2018-09-05 20:00] VITALS: BP 111/71
[2018-09-06] MEDS: PIPERACILLIN/TAZO/PMX 4.5GM 100 ML IV SCH ×4 (00:36→17:38)
[2018-09-06] MEDS: HEPARIN 5,000 UNITS/ML, 1ML SQ SCH ×3 (00:36→16:43)
[2018-09-06 02:53] VITALS: BP 113/77
[2018-09-06] MEDS: OXYcodone IR 5MG TABLET PO PRN ×4 (04:08→16:43)
[2018-09-06] MEDS: FERROUS SULFATE 325 MG TABLET PO SCH ×3 (07:47→16:43)
[2018-09-06] MEDS: GABAPENTIN 300 MG CAPSULE PO SCH (07:48)
[2018-09-06 08:10] VITALS: BP 104/66
[2018-09-06] MEDS ORDERED: DIPHENHYDRAMINE 25 MG CAPSULE ONE (12:19)
[2018-09-06] MEDS: LORazepam 0.5MG TABLET PO PRN (12:23)
[2018-09-06] MEDS ORDERED: DIPHENHYDRAMINE 25 MG CAPSULE PO PRN (12:30)
[2018-09-06] MEDS ORDERED: GABA300C10 PO (13:05)
[2018-09-06] MEDS ORDERED: FERR-51 PO (13:05)
[2018-09-06 14:45] VITALS: BP 112/68
[2018-09-06] MEDS: DAPTOMYCIN 500 MG in SODIUM CHLORIDE 0.9% 100 ML IVPB SCH (16:52)
[2018-09-06] MEDS ORDERED: DAPT500V3 INJ (16:53)
[2018-09-06] MEDS ORDERED: PIPE4.5V3 INLINE (16:53)
[2018-11-02] MEDS ORDERED: CEFT2VIA IV (14:21)
[2018-11-02] MEDS ORDERED: SODI473S8 EXT (14:21)
[2018-11-02] MEDS ORDERED: OXYC5TAB3 PO (14:21)
[2018-11-02] MEDS ORDERED: TRAM50TA2 PO (14:21)
== END 2018-09-06 18:26 | DRG 602 ==
LOC: ED 02:42 → EDIP 03:22 → 4NOR 04:10
PROVIDERS: ADMIT Internal Medicine; ATTEND Internal Medicine
PROC: 02HV33Z Insertion of Infusion Device into Superior Vena Cava, Percutaneous Approach (ICD-10-PCS; principal; 2018-08-28)
PROC: B5181ZA Fluoroscopy of Superior Vena Cava using Low Osmolar Contrast, Guidance (ICD-10-PCS; 2018-08-28)
PROC: B548ZZA Ultrasonography of Superior Vena Cava, Guidance (ICD-10-PCS; 2018-08-28)
DX: L02.31 Cutaneous abscess of buttock (principal); J18.9 Pneumonia, unspecified organism; G82.20 Paraplegia, unspecified; M86.69 Other chronic osteomyelitis, multiple sites; E87.1 Hypo-osmolality and hyponatremia; J98.11 Atelectasis; F17.210 Nicotine dependence, cigarettes, uncomplicated; L89.159 Pressure ulcer of sacral region, unspecified stage; B96.4 Proteus (mirabilis) (morganii) as the cause of diseases classified elsewhere; M85.80 Other specified disorders of bone density and structure, unspecified site; F41.9 Anxiety disorder, unspecified; D50.9 Iron deficiency anemia, unspecified; L89.519 Pressure ulcer of right ankle, unspecified stage; Z87.440 Personal history of urinary (tract) infections; Z93.3 Colostomy status; Z87.39 Personal history of other diseases of the musculoskeletal system and connective tissue; Z87.81 Personal history of (healed) traumatic fracture; B95.62 Methicillin resistant Staphylococcus aureus infection as the cause of diseases classified elsewhere
CPT/HCPCS: 36415; 36573; 71045; 71260; 74177; 80053; 80202; 82378; 82565; 82962; 83540; 83550; 85025; 85610; 85651; 85730; 86140; 87070; 87077; 87186; 87205; G0378; J0878; J1644; J1650; J2543; J3370; Q9967; C1751; J7050; Q0163

== ENCOUNTER 2019-03-11 14:21 | Emergency (ER) | payer MEDICAID, MEDICARE ==
[~2019-03-11] VITALS: Ht 180.3 cm; Wt 72.1 kg
[~2019-03-11 14:21] MED LIST changes: +CEFT2VIA IV; +DAPT500V3 INJ; +FERR-51 PO; +OXYC5TAB3 PO; +PIPE4.5V3 INLINE; +SODI473S8 EXT; +TRAM50TA2 PO
--- NOTE | 2019-03-11 15:03 | NUR ---
THIS IS A 58 YO MALE WHO PRESENTS TO THE ER C/O NEED FOR REFILL OF OXYCODONE D/T MISSING HIS PAIN MGT APPT YESTERDAY. PT HAS WOUND VAC THAT IS FOLLOWED BY [facility] EVERY OTHER DAY. THE DRESSING IS LOOSE. RN CALLED [facility] AND LEFT A MSG AND CALLED IN-PATIENT CHEST PAIN COORDINATOR AND WAS TOLD TO DO A WET/DRY DRESSING IF PT WILL ALLOW IT. PT CURRENTLY RESTING ON [employer]. NAD NOTED. SKIN PWD. RESP EVEN AND UNLABORED.
[2019-03-11] MEDS ORDERED: HYDROcodone/APAP 5/325 TABLET ONE (15:23)
[2019-03-11] MEDS ORDERED: OXYcodone/APAP 5/325MG TABLET PO ONE (15:30)
--- NOTE | 2019-03-11 15:45 | NUR ---
PT AND PT'S CAREGIVER REFUSED TO LET RN PULL WOUND VAC DRESSING AND PLACE A WET/DRY DRESSING PER PROTOCOL. RN ATTEMPTED TO CALL [facility] MULTIPLE TIMES TO COSULT WITH THEM REGARDING PT'S WOUND VAC. PER PT, A HOME HEALTH NURSE IS TO COME TOMORROW TO REPLACE THE DRESSING. PT REQUESTED DRESSING TO BE APPLIED TO "REINFORCE" THE WOUND. RN EDUCATED PT AND CAREGIVER OF RISKS OF THIS D/T HIGH RISK OF WORSENING INFECTION, TISSUE AND SEPSIS UP TO AND INCLUDING . PT REPORTED THAT "THIS HAPPENS ALL THE TIME. THAT'S MY TROUBLE SPOT" AND CONT TO REQUEST "REINFORCEMENT DRESSINGS" PRIOR TO DISCHARGE. RN DISCUSSED WITH [facility] BLAIR AND PT TO F/U WITH [facility]. AGAIN, RN LEFT MESSAGE AND ATTEMPTED TO ALERT/SPEAK WITH HOME HEALTH [facility] W/O SUCCESS AND PT EDUCATED MX TIM[facility] ON RISKS. PT VERBALIZED UNDERSTANDING.
[2019-03-11 15:59] VITALS: BP 101/57
[2019-03-11] MEDS ORDERED: HYDROcodone/APAP 5/325 TABLET PO ONE (17:00)
--- NOTE | 2019-03-11 17:10 | NUR ---
Rika RN: Pt provided w/ d/c paperwork, RX & assisted into wheelchair. Verb. understanding. of instructions.
== END 2019-03-11 17:10 | disposition home or self-care (01) ==
LOC: ED 14:40
DX: M79.652 Pain in left thigh (principal); M79.651 Pain in right thigh; R00.0 Tachycardia, unspecified; Z76.0 Encounter for issue of repeat prescription
CPT/HCPCS: 99283